=== PATIENT | male | born 1990 | race Caucasian/White ===

== ENCOUNTER 2016-12-09 17:29 | Emergency (ER) | payer OTHER ==
[2016-12-09 18:49] LABS: Hematocrit 38 % (42-52); Hemoglobin 12.8 g/dl (14.0-18.0); Mean Corpuscular HGB Conc 34 g/dl (31-36); Mean Corpuscular Hemoglobin 29 pg (27-31); Mean Corpuscular Volume 87 fL (80-94); Mean Platelet Volume 7 um3 (7.4-10.4); Red Blood Count 4.37 10^6/ul (4.0-5.4); Red Cell Distribution Width 16 % (10.5-15); White Blood Count 9.4 10^3/ul (3.5-10.8)
[2016-12-09 19:02] LABS: Albumin 3.7 g/dL (3.2-5.2); BUN/Creatinine Ratio 21.3 (8-20); C Reactive Protein 71.13 mg/L (< 5.00); Calcium 9.5 mg/dL (8.6-10.3); EGFR African American 273.5 (>60); EGFR Non-African American 212.7 (>60); Potassium 3.6 mmol/L (3.5-5.0); Total Bilirubin 0.6 mg/dL (0.2-1.0); Total Protein 6.7 g/dL (6.4-8.9)
[2016-12-09] MEDS ORDERED: Ondansetron INJ* 2 MG/ML VIAL IV ONE (19:26)
[2016-12-09] MEDS ORDERED: Vancomycin CAP* 125 MG CAP PO ONE ×2 (20:27→21:15)
[2016-12-09 21:28] LABS: Urine Bacteria 2+ (Absent); Urine Bilirubin Negative (Negative); Urine Glucose Negative (Negative); Urine Nitrite Positive (Negative)
[2016-12-09] MEDS ORDERED: Ciprofloxacin TAB* 500 MG PO ONE (21:46)
[2016-12-09 22:22] VITALS: BP 100/46
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
--- NOTE | 2016-12-10 16:02 | PN ---
Progress Note - Progress Note Date of Service: 12/09/16 Note: Started on vanco and cipro however psoke with pharmacist and due to needing prior auth for vanco was switched to flagyl. patient was recently diagnosed and treated for c diff. possibly just testing positive from last episode. stool culture results are positive for c diff and blood as already aware. already being treated. aware of worsening signs and symptoms. no further action or change needed at this time.
== END 2016-12-09 22:42 | disposition home or self-care (01) ==
LOC: ED 17:29
DX: N39.0 Urinary tract infection, site not specified (principal); A04.7 Enterocolitis due to Clostridium difficile; R11.2 Nausea with vomiting, unspecified; R50.9 Fever, unspecified
CPT/HCPCS: 36415; 80053; 81003; 81015; 82272; 83605; 83630; 85025; 85610; 86140; 87040; 87045; 87046; 87077; 87086; 87186; 87493; 87899; 96374; 99282; A9270-GY; J2405

== ENCOUNTER 2018-04-08 16:26 | Emergency (ER) | payer OTHER ==
[2018-04-08] MEDS ORDERED: oxyCODONE TAB* 5 MG TAB PO ONE (17:22)
[2018-04-08] MEDS ORDERED: Ibuprofen TAB* 400 MG PO ONE (17:22)
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
[2018-04-08 18:49] VITALS: BP 141/65
== END 2018-04-08 18:47 | disposition home or self-care (01) ==
LOC: ED 16:26
DX: M54.9 Dorsalgia, unspecified (principal); Z76.0 Encounter for issue of repeat prescription; G47.9 Sleep disorder, unspecified; G82.20 Paraplegia, unspecified; Z88.4 Allergy status to anesthetic agent; F17.210 Nicotine dependence, cigarettes, uncomplicated
CPT/HCPCS: 72070; 72110; 99282; A9270-GY

== ENCOUNTER 2020-04-04 18:44 | Inpatient (IN) ==
[2020-04-04 21:19] LABS: ABS Eosinophils 0.1 10^3/ul (0-0.6); ABS Lymphocytes 1.8 10^3/ul (1.0-4.8); ABS Monocytes 1.1 10^3/ul (0-0.8); ABS Neutrophils 7.3 10^3/ul (1.5-7.7); Eosinophil % 1.3 %; Hematocrit 47 % (42-52); Hemoglobin 16.2 g/dL (14.0-18.0); Mean Corpuscular HGB Conc 35 g/dL (31-36); Mean Corpuscular Hemoglobin 31 pg (27-31); Mean Corpuscular Volume 88 fL (80-94); Mean Platelet Volume 7.1 fL (7.4-10.4); Platelet Count 390 10^3/uL (150-450); Red Blood Count 5.29 10^6 /uL (4.18-5.48); Red Cell Distribution Width 14 % (10-15); White Blood Count 10.3 10^3/uL (3.5-10.8)
[2020-04-04 21:37] LABS: ALT 23 U/L (7-52); AST 24 U/L (13-39); Albumin 4.6 g/dL (3.2-5.2); Albumin/Globulin Ratio 1.4 (1-3); Alkaline Phosphatase 77 U/L (34-104); Anion Gap 8 mmol/L (2-11); BUN/Creatinine Ratio 32.7 (8-20); Blood Urea Nitrogen 18 mg/dL (6-24); CO2 Carbon Dioxide 27 mmol/L (22-32); Calcium 10.2 mg/dL (8.6-10.3); Chloride 103 mmol/L (101-111); EGFR African American 210.2 (>60); EGFR Non-African American 173.7 (>60); Globulin 3.4 g/dL (2-4); Glucose 96 mg/dL (70-100); Sodium 138 mmol/L (135-145)
[2020-04-04 21:45] LABS: Urine Appearance Cloudy; Urine Bilirubin Negative (Negative); Urine Blood 1+ (Negative); Urine Color Yellow; Urine Glucose Negative (Negative); Urine Ketones Negative (Negative); Urine Nitrite Negative (Negative); Urine Protein Negative (Negative); Urine Specific Gravity 1.011 (1.010-1.030); Urine Urobilinogen Negative (Negative)
[2020-04-04 21:50] LABS: Acetaminophen < 15 mcg/mL; Alcohol, S < 10 mg/dL (<10); Salicylate < 2.50 mg/dL (<30)
[2020-04-04 21:52] LABS: Urine Bacteria 2+ (Absent); Urine Red Blood Cell 2+(6-10/hpf) (Absent); Urine Squamous Epithelial Cell Present (Absent); Urine White Blood Cell 3+(>20/hpf) (Absent)
[2020-04-04] MEDS ORDERED: Cefepime 2 GM in Dextrose 2 GM/50 ML BAG IV ONE (22:24)
[2020-04-05 00:44] LABS: Urine Benzodiazepine Screen None Detected (None Detect); Urine Cannabinoids Screen None Detected (None Detect); Urine Opiates Screen Presumptive Positive (None Detect)
[2020-04-05] MEDS ORDERED: Albuterol 2.5mg/3 ml (0.083%) NEB.SOLN INH PRN (01:19)
[2020-04-05] MEDS: Morphine ER 30 mg TAB ** extended release PO SCH ×3 (08:39→19:59)
[2020-04-05] MEDS ORDERED: Ondansetron 4 mg VIAL 2 MG/ML 2 ml VIAL IV PRN (09:47)
[2020-04-05] MEDS ORDERED: Lorazepam PYXIS KEY PRN (09:52)
[2020-04-05] MEDS ORDERED: LORazepam 2 mg VIAL 1 ml IV PUSH PRN (09:52)
[2020-04-05] MEDS: Cefepime 2 GM in Dextrose 2 GM/50 ML BAG IV SCH ×2 (11:53→23:11)
[2020-04-05] MEDS ORDERED: Nicotine Lozenge mini 2 MG LOZNG.MINI MT PRN (15:51)
[2020-04-05] MEDS: Nicotine PATCH 14 MG/24 HR PATCH TRANSDERM SCH (16:24)
[2020-04-06] MEDS: Morphine ER 30 mg TAB ** extended release PO SCH ×2 (09:17→13:04)
[2020-04-06] MEDS: Nicotine PATCH 14 MG/24 HR PATCH TRANSDERM SCH (09:35)
[2020-04-06] MEDS: Cefepime 2 GM in Dextrose 2 GM/50 ML BAG IV SCH (12:00)
[2020-04-06] MEDS ORDERED: Nicotine GUM 4MG FRUIT FLAVOR PO PRN (14:34)
[2020-04-06 15:34] VITALS: BP 94/45
[2020-04-06] MEDS ORDERED: Cefepime 2 GM in NS 0.9% 50 ML 50 ML IVPB SCH (23:00)
== END 2020-04-06 16:46 | disposition home or self-care (01) | DRG 896 ==
LOC: ED 18:44 → MED 04-05 01:13
PROVIDERS: ADMIT Student in an Organized Health Care Education/Training Program; ATTEND Internal Medicine

== ENCOUNTER 2020-06-25 17:33 | Inpatient (IN) ==
[2020-06-25 19:07] LABS: ABS Lymphocytes 1.4 10^3/ul (1.0-4.8); ABS Monocytes 1.5 10^3/ul (0-0.8); Eosinophil % 0.4 %; Hematocrit 36 % (42-52); Hemoglobin 12.5 g/dL (14.0-18.0); Lymphocyte % 11.4 %; Mean Corpuscular HGB Conc 35 g/dL (31-36); Mean Corpuscular Hemoglobin 30 pg (27-31); Mean Corpuscular Volume 85 fL (80-94); Mean Platelet Volume 7.1 fL (7.4-10.4); Platelet Count 474 10^3/uL (150-450); Red Blood Count 4.19 10^6 /uL (4.18-5.48); Red Cell Distribution Width 15 % (10-15); White Blood Count 11.9 10^3/uL (3.5-10.8)
[2020-06-25] MEDS ORDERED: Vancomycin 1,250 MG in NS 0.9% 250 ml 250 ML IVPB ONE (19:12)
[2020-06-25 19:20] LABS: Albumin 3.6 g/dL (3.2-5.2); Albumin/Globulin Ratio 0.9 (1-3); BUN/Creatinine Ratio 28.9 (8-20); Calcium 9.3 mg/dL (8.6-10.3); Globulin 3.8 g/dL (2-4); Potassium 3.7 mmol/L (3.5-5.0); Total Bilirubin 0.7 mg/dL (0.2-1.0); Total Protein 7.4 g/dL (6.4-8.9)
[2020-06-25] MEDS ORDERED: NS 0.9% 250 ml 250 ML ONE (20:30)
[2020-06-25 22:07] LABS: C Reactive Protein 159.21 mg/L (<8.01)
[2020-06-25] MEDS ORDERED: Albuterol 2.5mg/3 ml (0.083%) NEB.SOLN INH PRN (22:42)
[2020-06-25] MEDS ORDERED: Vancomycin per Pharmacy 1 EA NOTE FOLLOW UP SCH (23:00)
[2020-06-25] MEDS ORDERED: Piperacillin/Tazobac ADVAN 3.375 GM in NS 0.9% 100 ml BAG 100 ML IV ONE (23:26)
[2020-06-25] MEDS ORDERED: Zosyn per Pharmacy NOTE FOLLOW UP SCH (23:45)
[2020-06-26] MEDS ORDERED: Nicotine Lozenge mini 4 MG LOZNG.MINI MT PRN (01:55)
[2020-06-26 04:49] LABS: Urine Appearance Cloudy; Urine Bilirubin Negative (Negative); Urine Blood Negative (Negative); Urine Color Amber; Urine Glucose Negative (Negative); Urine Ketones 1+ (Negative); Urine Nitrite Negative (Negative); Urine Protein 1+(30 mg/dL) (Negative); Urine Specific Gravity 1.027 (1.010-1.030); Urine Urobilinogen Negative (Negative)
[2020-06-26] MEDS ORDERED: Vancomycin 1,250 MG IV x ONCE IVPB ONE (05:03)
[2020-06-26 05:09] LABS: Urine Benzodiazepine Screen Presumptive Positive (None Detect); Urine Cannabinoids Screen Presumptive Positive (None Detect); Urine Opiates Screen Presumptive Positive (None Detect)
[2020-06-26 05:10] LABS: Urine Bacteria Absent (Absent); Urine Red Blood Cell Trace(0-2/hpf) (Absent); Urine Squamous Epithelial Cell Present (Absent); Urine White Blood Cell 2+(11-20/hpf) (Absent)
[2020-06-26] MEDS ORDERED: ZOSYN 3.375 GM Q6H - Intermittant 30 min Infusion IV ONE (06:00)
[2020-06-26 06:49] LABS: ABS Basophils 0.1 10^3/ul (0-0.2); ABS Eosinophils 0.2 10^3/ul (0-0.6); Eosinophil % 2.5 %; Hematocrit 33 % (42-52); Hemoglobin 11.4 g/dL (14.0-18.0); Lymphocyte % 27.2 %; Mean Corpuscular HGB Conc 34 g/dL (31-36); Mean Corpuscular Hemoglobin 29 pg (27-31); Mean Corpuscular Volume 86 fL (80-94); Mean Platelet Volume 6.9 fL (7.4-10.4); Platelet Count 485 10^3/uL (150-450); Red Blood Count 3.89 10^6 /uL (4.18-5.48); Red Cell Distribution Width 15 % (10-15); White Blood Count 7.3 10^3/uL (3.5-10.8)
[2020-06-26 07:07] LABS: Calcium 8.5 mg/dL (8.6-10.3); EGFR African American 186.6 (>60); EGFR Non-African American 154.2 (>60); Potassium 3.3 mmol/L (3.5-5.0)
[2020-06-26] MEDS ORDERED: Potassium Chlor 20 meq TAB.ER PO ONE ×2 (08:10→21:00)
[2020-06-26] MEDS: Heparin 5000 UNITS/ML 1 mL VIAL SUBCUT SCH ×3 (08:26→22:33)
[2020-06-26] MEDS ORDERED: Vancomycin 1000 MG in NS 0.9% 250 ML IVPB SCH (09:00)
[2020-06-26] MEDS: Morphine ER 30 mg TAB ** extended release PO SCH ×3 (09:35→19:34)
[2020-06-26] MEDS: Collagenase 250 units/gm OINT 1 tube TOPICAL SCH (10:01)
[2020-06-26 11:51] LABS: HIV 4th Generation Nonreactive (Nonreactive)
[2020-06-26] MEDS ORDERED: ZOSYN 3.375 GM Q8H per EXTENDED INFUSION IV SCH ×2 (12:00→14:00)
[2020-06-26 12:45] LABS: Hepatitis C Antibody Negative (Negative)
[2020-06-26] MEDS: Cefepime 2 GM in Dextrose 2 GM/50 ML BAG IV SCH ×2 (14:02→22:29)
[2020-06-26] MEDS: Vancomycin 1000 MG in NS 0.9% 250 ML IVPB SCH (19:35)
[2020-06-27] MEDS: Vancomycin 1000 MG in NS 0.9% 250 ML IVPB SCH ×4 (03:13→22:59)
[2020-06-27] MEDS: Cefepime 2 GM in Dextrose 2 GM/50 ML BAG IV SCH ×2 (05:33→17:04)
[2020-06-27] MEDS: Heparin 5000 UNITS/ML 1 mL VIAL SUBCUT SCH ×2 (05:39→14:54)
[2020-06-27] MEDS ORDERED: Vancomycin Trough Check NOTE FOLLOW UP ONE (06:00)
[2020-06-27 07:56] LABS: Hematocrit 32 % (42-52); Hemoglobin 10.7 g/dL (14.0-18.0); Mean Corpuscular HGB Conc 34 g/dL (31-36); Mean Corpuscular Hemoglobin 29 pg (27-31); Mean Corpuscular Volume 88 fL (80-94); Mean Platelet Volume 6.7 fL (7.4-10.4); Platelet Count 434 10^3/uL (150-450); Red Blood Count 3.65 10^6 /uL (4.18-5.48); Red Cell Distribution Width 15 % (10-15)
[2020-06-27 08:11] LABS: BUN/Creatinine Ratio 13.5 (8-20); Calcium 8.5 mg/dL (8.6-10.3); EGFR African American 224.3 (>60); EGFR Non-African American 185.4 (>60)
[2020-06-27] MEDS: Morphine ER 30 mg TAB ** extended release PO SCH ×3 (08:28→22:06)
[2020-06-27 08:44] LABS: Vancomycin Trough 13.8 mcg/mL
[2020-06-27] MEDS: Collagenase 250 units/gm OINT 1 tube TOPICAL SCH (11:22)
[2020-06-27] MEDS: Enoxaparin 40 MG/0.4 ML SYR SUBCUT SCH (17:17)
[2020-06-28] MEDS: Cefepime 2 GM in Dextrose 2 GM/50 ML BAG IV SCH ×4 (00:47→22:50)
[2020-06-28 05:24] LABS: Hematocrit 30 % (42-52); Mean Corpuscular HGB Conc 33 g/dL (31-36); Mean Corpuscular Hemoglobin 29 pg (27-31); Mean Corpuscular Volume 87 fL (80-94); Mean Platelet Volume 6.8 fL (7.4-10.4); Platelet Count 393 10^3/uL (150-450); Red Blood Count 3.47 10^6 /uL (4.18-5.48); Red Cell Distribution Width 15 % (10-15); White Blood Count 5.8 10^3/uL (3.5-10.8)
[2020-06-28 05:41] LABS: BUN/Creatinine Ratio 13.5 (8-20); Calcium 8.4 mg/dL (8.6-10.3); EGFR African American 224.3 (>60); EGFR Non-African American 185.4 (>60); Magnesium 1.9 mg/dL (1.9-2.7); Potassium 4.4 mmol/L (3.5-5.0)
[2020-06-28] MEDS: Vancomycin 1000 MG in NS 0.9% 250 ML IVPB SCH ×3 (06:12→23:45)
[2020-06-28] MEDS: Morphine ER 30 mg TAB ** extended release PO SCH ×3 (08:15→20:43)
[2020-06-28] MEDS: Collagenase 250 units/gm OINT 1 tube TOPICAL SCH (08:19)
[2020-06-28 12:28] LABS: C Reactive Protein 28.97 mg/L (<8.01)
[2020-06-28] MEDS ORDERED: Vancomycin Trough Check NOTE FOLLOW UP ONE (13:30)
[2020-06-28] MEDS: Enoxaparin 40 MG/0.4 ML SYR SUBCUT SCH (17:50)
[2020-06-28] MEDS ORDERED: Lorazepam PYXIS KEY PRN (21:55)
[2020-06-28] MEDS ORDERED: LORazepam 2 mg VIAL 1 ml IV PUSH ONE (21:56)
[2020-06-29] MEDS: Cefepime 2 GM in Dextrose 2 GM/50 ML BAG IV SCH ×3 (05:38→21:05)
[2020-06-29 06:08] LABS: Hematocrit 30 % (42-52); Hemoglobin 9.7 g/dL (14.0-18.0); Mean Corpuscular HGB Conc 33 g/dL (31-36); Mean Corpuscular Hemoglobin 29 pg (27-31); Mean Corpuscular Volume 88 fL (80-94); Mean Platelet Volume 6.6 fL (7.4-10.4); Platelet Count 379 10^3/uL (150-450); Red Blood Count 3.35 10^6 /uL (4.18-5.48); Red Cell Distribution Width 15 % (10-15); White Blood Count 5.9 10^3/uL (3.5-10.8)
[2020-06-29] MEDS: Vancomycin 1000 MG in NS 0.9% 250 ML IVPB SCH ×3 (06:29→22:04)
[2020-06-29] MEDS: Morphine ER 30 mg TAB ** extended release PO SCH ×3 (08:23→21:04)
[2020-06-29] MEDS: Collagenase 250 units/gm OINT 1 tube TOPICAL SCH ×2 (12:48→15:04)
[2020-06-29] MEDS: Enoxaparin 40 MG/0.4 ML SYR SUBCUT SCH (16:31)
[2020-06-30] MEDS: Cefepime 2 GM in Dextrose 2 GM/50 ML BAG IV SCH ×3 (05:30→23:32)
[2020-06-30] MEDS: Vancomycin 1000 MG in NS 0.9% 250 ML IVPB SCH ×3 (06:16→21:33)
[2020-06-30] MEDS: Collagenase 250 units/gm OINT 1 tube TOPICAL SCH (08:40)
[2020-06-30] MEDS: Morphine ER 30 mg TAB ** extended release PO SCH ×3 (08:43→19:57)
[2020-06-30 08:50] LABS: Hematocrit 32 % (42-52); Hemoglobin 10.6 g/dL (14.0-18.0); Mean Corpuscular HGB Conc 34 g/dL (31-36); Mean Corpuscular Hemoglobin 29 pg (27-31); Mean Corpuscular Volume 88 fL (80-94); Mean Platelet Volume 6.6 fL (7.4-10.4); Platelet Count 402 10^3/uL (150-450); Red Cell Distribution Width 15 % (10-15); White Blood Count 7.2 10^3/uL (3.5-10.8)
[2020-06-30 08:58] LABS: BUN/Creatinine Ratio 21.8 (8-20); C Reactive Protein 10.28 mg/L (<8.01); Calcium 8.6 mg/dL (8.6-10.3); EGFR African American 210.2 (>60); EGFR Non-African American 173.7 (>60); Potassium 4.2 mmol/L (3.5-5.0)
[2020-06-30 09:34] LABS: ABS Eosinophils 0.4 10^3/ul (0-0.6); ABS Lymphocytes 1.8 10^3/ul (1.0-4.8); ABS Neutrophils 3.9 10^3/ul (1.5-7.7); Eosinophil % 6.1 %; Lymphocyte % 25.6 %; Nucleated Red Blood Cells % 0.1
[2020-06-30] MEDS ORDERED: Vancomycin Trough Check NOTE FOLLOW UP ONE (13:30)
[2020-06-30] MEDS: Enoxaparin 40 MG/0.4 ML SYR SUBCUT SCH ×2 (15:07→15:10)
[2020-07-01] MEDS: Cefepime 2 GM in Dextrose 2 GM/50 ML BAG IV SCH ×2 (05:45→14:52)
[2020-07-01] MEDS: Vancomycin 1000 MG in NS 0.9% 250 ML IVPB SCH ×2 (07:01→15:06)
[2020-07-01] MEDS: Morphine ER 30 mg TAB ** extended release PO SCH ×2 (07:48→14:54)
[2020-07-01] MEDS: Collagenase 250 units/gm OINT 1 tube TOPICAL SCH (10:09)
[2020-07-01] MEDS ORDERED: Vancomycin Trough Check NOTE FOLLOW UP ONE (13:30)
[2020-07-01 14:55] VITALS: BP 100/46
[2020-07-01] MEDS: Enoxaparin 40 MG/0.4 ML SYR SUBCUT SCH (15:05)
== END 2020-07-01 18:02 | disposition home or self-care (01) | DRG 602 ==
LOC: EDHOLD 17:33 → ED 17:33 → MEDTELE 06-26 11:21
PROVIDERS: ADMIT Internal Medicine; ATTEND Internal Medicine

== ENCOUNTER 2020-07-31 00:36 | Inpatient (IN) ==
[2020-07-31 01:14] LABS: Hematocrit 34 % (42-52); Hemoglobin 11.8 g/dL (14.0-18.0); Mean Corpuscular HGB Conc 35 g/dL (31-36); Mean Corpuscular Hemoglobin 30 pg (27-31); Mean Corpuscular Volume 85 fL (80-94); Platelet Count 510 10^3/uL (150-450); Red Blood Count 3.99 10^6 /uL (4.18-5.48); Red Cell Distribution Width 16 % (10-15); White Blood Count 12.4 10^3/uL (3.5-10.8)
[2020-07-31 01:26] LABS: Albumin 3.5 g/dL (3.2-5.2); Albumin/Globulin Ratio 0.9 (1-3); BUN/Creatinine Ratio 22.5 (8-20); C Reactive Protein 124.57 mg/L (<8.01); EGFR African American 301.6 (>60); EGFR Non-African American 249.3 (>60); Total Bilirubin 0.5 mg/dL (0.2-1.0); Total Protein 7.5 g/dL (6.4-8.9)
[2020-07-31 01:27] LABS: Troponin I 0.01 ng/mL (<0.03)
[2020-07-31 01:34] LABS: Activated Partial Thrombo Time 29.3 seconds (26.0-38.0); INR 1.37 (0.82-1.09)
[2020-07-31 01:43] LABS: ABS Basophils 0.1 10^3/ul (0-0.2); ABS Eosinophils 0.1 10^3/ul (0-0.6); ABS Lymphocytes 1.6 10^3/ul (1.0-4.8); ABS Neutrophils 8.7 10^3/ul (1.5-7.7); Eosinophil % 0.7 %; Lymphocyte % 13.3 %
[2020-07-31] MEDS ORDERED: NS 0.9% 1000 ml BAG 1,000 ML IV ONE (02:50)
[2020-07-31] MEDS ORDERED: Albuterol 2.5mg/3 ml (0.083%) NEB.SOLN INH PRN (04:49)
[2020-07-31] MEDS ORDERED: Iohexol 300 (CONTRAST) 10 ML SDV IV ONE (05:05)
[2020-07-31] MEDS ORDERED: Linezolid 600 MG IVPREMIX(*) 600 MG/300 ML BAG IVPB ONE (05:26)
[2020-07-31] MEDS ORDERED: Potassium Chlor 20 meq TAB.ER PO ONE (06:56)
[2020-07-31 07:19] LABS: ABS Basophils 0.1 10^3/ul (0-0.2); ABS Eosinophils 0.3 10^3/ul (0-0.6); ABS Lymphocytes 1.7 10^3/ul (1.0-4.8); ABS Monocytes 1.4 10^3/ul (0-0.8); ABS Neutrophils 6.8 10^3/ul (1.5-7.7); Eosinophil % 2.6 %; Hematocrit 34 % (42-52); Hemoglobin 11.4 g/dL (14.0-18.0); Lymphocyte % 16.7 %; Mean Corpuscular HGB Conc 34 g/dL (31-36); Mean Corpuscular Hemoglobin 29 pg (27-31); Mean Corpuscular Volume 85 fL (80-94); Mean Platelet Volume 6.9 fL (7.4-10.4); Platelet Count 473 10^3/uL (150-450); Red Blood Count 3.93 10^6 /uL (4.18-5.48); Red Cell Distribution Width 16 % (10-15); White Blood Count 10.2 10^3/uL (3.5-10.8)
[2020-07-31 07:35] LABS: BUN/Creatinine Ratio 23.1 (8-20); Calcium 8.5 mg/dL (8.6-10.3); EGFR African American 310.6 (>60); EGFR Non-African American 256.7 (>60); Potassium 3.1 mmol/L (3.5-5.0)
[2020-07-31] MEDS ORDERED: Magnesium Hydroxide LIQ 30 ML UDC PO PRN (07:40)
[2020-07-31 08:26] LABS: Magnesium 1.8 mg/dL (1.9-2.7)
[2020-07-31] MEDS: Senna TAB 8.6 mg TAB PO PRN (11:37)
[2020-07-31] MEDS: Enoxaparin 40 MG/0.4 ML SYR SUBCUT SCH (11:38)
[2020-07-31] MEDS: Morphine ER 30 mg TAB ** extended release PO SCH ×3 (11:38→23:48)
[2020-07-31 12:20] LABS: Urine Appearance Clear; Urine Bilirubin Negative (Negative); Urine Blood Negative (Negative); Urine Color Yellow; Urine Glucose Negative (Negative); Urine Ketones Negative (Negative); Urine Nitrite Negative (Negative); Urine Protein Negative (Negative); Urine Specific Gravity 1.057 (1.010-1.030); Urine Urobilinogen Negative (Negative)
[2020-07-31 13:06] LABS: Urine Benzodiazepine Screen None Detected (None Detect); Urine Cannabinoids Screen None Detected (None Detect); Urine Opiates Screen Presumptive Positive (None Detect)
[2020-07-31] MEDS ORDERED: Lorazepam PYXIS KEY PRN (15:41)
[2020-07-31] MEDS ORDERED: LORazepam 2 mg VIAL 1 ml IV PUSH PRN (19:30)
[2020-07-31] MEDS ORDERED: LORazepam 2 mg VIAL 1 ml IV PUSH ONE (19:30)
[2020-07-31] MEDS: Linezolid 600 MG IVPREMIX(*) 600 MG/300 ML BAG IVPB SCH (23:46)
[2020-08-01] MEDS ORDERED: Magnesium Sulfate 2 gm BAG 2 GM/50 ML BAG IVPB ONE (07:30)
[2020-08-01 08:12] LABS: ABS Eosinophils 0.4 10^3/ul (0-0.6); ABS Lymphocytes 2.2 10^3/ul (1.0-4.8); ABS Monocytes 0.8 10^3/ul (0-0.8); ABS Neutrophils 4.2 10^3/ul (1.5-7.7); Eosinophil % 5.7 %; Hematocrit 32 % (42-52); Hemoglobin 10.7 g/dL (14.0-18.0); Lymphocyte % 28.2 %; Mean Corpuscular HGB Conc 33 g/dL (31-36); Mean Corpuscular Hemoglobin 29 pg (27-31); Mean Corpuscular Volume 87 fL (80-94); Mean Platelet Volume 6.8 fL (7.4-10.4); Nucleated Red Blood Cells % 0.1; Platelet Count 440 10^3/uL (150-450); Red Blood Count 3.72 10^6 /uL (4.18-5.48); Red Cell Distribution Width 17 % (10-15); White Blood Count 7.7 10^3/uL (3.5-10.8)
[2020-08-01 08:31] LABS: BUN/Creatinine Ratio 21.1 (8-20); Calcium 8.8 mg/dL (8.6-10.3); EGFR Non-African American 264.5 (>60)
[2020-08-01] MEDS: Morphine ER 30 mg TAB ** extended release PO SCH ×3 (08:45→21:22)
[2020-08-01] MEDS: Potassium Chlor 20 meq TAB.ER PO SCH (08:46)
[2020-08-01 09:28] LABS: C Reactive Protein 77.37 mg/L (<8.01)
[2020-08-01] MEDS: Enoxaparin 40 MG/0.4 ML SYR SUBCUT SCH (10:33)
[2020-08-01] MEDS: Linezolid 600 MG IVPREMIX(*) 600 MG/300 ML BAG IVPB SCH ×2 (14:30→23:55)
[2020-08-02] MEDS: Morphine ER 30 mg TAB ** extended release PO SCH ×3 (09:22→20:51)
[2020-08-02] MEDS: Potassium Chlor 20 meq TAB.ER PO SCH (09:24)
[2020-08-02] MEDS: Enoxaparin 40 MG/0.4 ML SYR SUBCUT SCH (09:24)
[2020-08-02] MEDS: Linezolid 600 MG IVPREMIX(*) 600 MG/300 ML BAG IVPB SCH ×2 (12:34→23:59)
[2020-08-03] MEDS: Enoxaparin 40 MG/0.4 ML SYR SUBCUT SCH (10:00)
[2020-08-03] MEDS: Morphine ER 30 mg TAB ** extended release PO SCH ×3 (10:01→21:38)
[2020-08-03] MEDS: Potassium Chlor 20 meq TAB.ER PO SCH (10:01)
[2020-08-03] MEDS: Linezolid 600 MG IVPREMIX(*) 600 MG/300 ML BAG IVPB SCH (12:11)
[2020-08-04] MEDS: Linezolid 600 MG IVPREMIX(*) 600 MG/300 ML BAG IVPB SCH ×3 (00:06→23:09)
[2020-08-04 06:52] LABS: Hematocrit 33 % (42-52); Hemoglobin 10.6 g/dL (14.0-18.0); Mean Corpuscular HGB Conc 32 g/dL (31-36); Mean Corpuscular Hemoglobin 28 pg (27-31); Mean Corpuscular Volume 88 fL (80-94); Mean Platelet Volume 6.8 fL (7.4-10.4); Platelet Count 415 10^3/uL (150-450); Red Blood Count 3.74 10^6 /uL (4.18-5.48); Red Cell Distribution Width 16 % (10-15)
[2020-08-04 07:17] LABS: BUN/Creatinine Ratio 14.9 (8-20); C Reactive Protein 12.65 mg/L (<8.01); Calcium 8.8 mg/dL (8.6-10.3); EGFR African American 250.4 (>60); Magnesium 1.8 mg/dL (1.9-2.7); Potassium 3.9 mmol/L (3.5-5.0)
[2020-08-04] MEDS: Enoxaparin 40 MG/0.4 ML SYR SUBCUT SCH (10:13)
[2020-08-04] MEDS: Potassium Chlor 20 meq TAB.ER PO SCH ×2 (10:14→10:22)
[2020-08-04] MEDS: Morphine ER 30 mg TAB ** extended release PO SCH ×3 (10:14→19:39)
[2020-08-04] MEDS: Senna TAB 8.6 mg TAB PO PRN (12:36)
[2020-08-05] MEDS ORDERED: Buffered Lidocaine 1% SYRIN 1 ml INTRADERM ONE (06:00)
[2020-08-05] MEDS ORDERED: Lactated Ringers 1000 ml BAG 1,000 ML IV SCH (06:00)
[2020-08-05] MEDS ORDERED: Ondansetron 4 mg VIAL 2 MG/ML 2 ml VIAL IV PRN (08:06)
[2020-08-05] MEDS ORDERED: diPHENhydraMINE IV 50 MG/ML 1 ml VIAL (BENADRYL) IV PRN (08:06)
[2020-08-05] MEDS ORDERED: Naloxone 0.4 mg VIAL 0.4 mg/ml 1 ml VIAL IV PRN (08:06)
[2020-08-05] MEDS: Enoxaparin 40 MG/0.4 ML SYR SUBCUT SCH (09:55)
[2020-08-05] MEDS: Morphine ER 30 mg TAB ** extended release PO SCH ×3 (09:55→20:36)
[2020-08-05] MEDS: Potassium Chlor 20 meq TAB.ER PO SCH (09:55)
[2020-08-05] MEDS: Linezolid 600 MG IVPREMIX(*) 600 MG/300 ML BAG IVPB SCH (12:53)
[2020-08-06] MEDS: Linezolid 600 MG IVPREMIX(*) 600 MG/300 ML BAG IVPB SCH ×3 (00:38→23:41)
[2020-08-06] MEDS: Morphine ER 30 mg TAB ** extended release PO SCH ×3 (10:39→21:29)
[2020-08-06] MEDS: Potassium Chlor 20 meq TAB.ER PO SCH (10:39)
[2020-08-06] MEDS: Enoxaparin 40 MG/0.4 ML SYR SUBCUT SCH (10:42)
[2020-08-07] MEDS: Linezolid 600 MG IVPREMIX(*) 600 MG/300 ML BAG IVPB SCH ×2 (00:15→14:23)
[2020-08-07] MEDS: Potassium Chlor 20 meq TAB.ER PO SCH (10:11)
[2020-08-07] MEDS: Enoxaparin 40 MG/0.4 ML SYR SUBCUT SCH (10:12)
[2020-08-07 19:28] VITALS: BP 129/78
== END 2020-08-07 18:00 | disposition home health service (06) | DRG 604 ==
LOC: ED 00:36 → MED 07:24
PROVIDERS: ADMIT Internal Medicine; ATTEND Internal Medicine

== ENCOUNTER 2020-09-17 22:07 | Inpatient (IN) ==
[2020-09-17] MEDS ORDERED: NS 0.9% 1000 ml BAG 1,000 ML IV ONE (22:14)
[2020-09-17 23:04] LABS: Hematocrit 36 % (42-52); Mean Corpuscular HGB Conc 33 g/dL (31-36); Mean Corpuscular Hemoglobin 27 pg (27-31); Mean Corpuscular Volume 83 fL (80-94); Mean Platelet Volume 6.6 fL (7.4-10.4); Platelet Count 531 10^3/uL (150-450); Red Cell Distribution Width 17 % (10-15); White Blood Count 17.5 10^3/uL (3.5-10.8)
[2020-09-17 23:14] LABS: Albumin 3.4 g/dL (3.2-5.2); Albumin/Globulin Ratio 0.9 (1-3); C Reactive Protein 215.02 mg/L (<8.01); EGFR African American 301.6 (>60); EGFR Non-African American 249.3 (>60); Potassium 2.9 mmol/L (3.5-5.0); Total Bilirubin 0.6 mg/dL (0.2-1.0); Total Protein 7.4 g/dL (6.4-8.9)
[2020-09-17 23:40] LABS: ABS Lymphocytes 1.2 10^3/ul (1.0-4.8); ABS Neutrophils 14.3 10^3/ul (1.5-7.7); Eosinophil % 0.1 %
[2020-09-17] MEDS ORDERED: Potassium Chlor 20 meq TAB.ER PO ONE (23:41)
[2020-09-18] MEDS ORDERED: Albuterol 2.5mg/3 ml (0.083%) NEB.SOLN INH PRN (00:31)
[2020-09-18 02:51] LABS: Magnesium 2.2 mg/dL (1.9-2.7)
[2020-09-18] MEDS: Linezolid 600 MG IVPREMIX(*) 600 MG/300 ML BAG IVPB SCH ×2 (03:41→16:24)
[2020-09-18] MEDS: Nicotine PATCH 21 MG/24 HR PATCH TRANSDERM SCH ×3 (04:55→09:14)
[2020-09-18] MEDS: Enoxaparin 40 MG/0.4 ML SYR SUBCUT SCH (05:48)
[2020-09-18 05:59] LABS: Calcium 8.3 mg/dL (8.6-10.3); EGFR African American 256.7 (>60); EGFR Non-African American 212.2 (>60)
[2020-09-18] MEDS: NS 0.9% 1000 ml BAG 1,000 ML IV SCH (07:29)
[2020-09-18] MEDS ORDERED: Potassium Chlor 20 meq TAB.ER PO ONE (07:35)
[2020-09-18] MEDS ORDERED: Morphine ER 30 mg TAB ** extended release PO SCH (09:00)
[2020-09-18] MEDS: Morphine ER 30 mg TAB ** extended release PO SCH ×3 (09:17→21:45)
[2020-09-18] MEDS: Fluticasone NASAL SPRAY 50MCG 16 gm SPRAY BTL INTRANASAL SCH ×2 (09:22→21:49)
[2020-09-18] MEDS ORDERED: Buffered Lidocaine 1% SYRIN 1 ml INTRADERM ONE ×2 (11:44→15:45)
[2020-09-18 18:47] LABS: Urine Appearance Clear; Urine Bilirubin Negative (Negative); Urine Blood Negative (Negative); Urine Color Amber; Urine Glucose Negative (Negative); Urine Ketones Negative (Negative); Urine Nitrite Negative (Negative); Urine Protein 1+(30 mg/dL) (Negative); Urine Specific Gravity 1.027 (1.002-1.030); Urine Urobilinogen Positive (Negative)
[2020-09-18 18:52] LABS: Urine Bacteria Absent (Absent); Urine Red Blood Cell 2+(6-10/hpf) (Absent); Urine Squamous Epithelial Cell Present (Absent); Urine White Blood Cell 2+(11-20/hpf) (Absent)
[2020-09-18 19:14] LABS: Urine Benzodiazepine Screen None Detected (None Detect); Urine Cannabinoids Screen Presumptive Positive (None Detect); Urine Opiates Screen Presumptive Positive (None Detect)
[2020-09-19] MEDS: NS 0.9% 1000 ml BAG 1,000 ML IV SCH ×2 (03:09→12:44)
[2020-09-19] MEDS: Linezolid 600 MG IVPREMIX(*) 600 MG/300 ML BAG IVPB SCH ×2 (03:09→16:18)
[2020-09-19] MEDS ORDERED: Naloxone 0.4 mg VIAL 0.4 mg/ml 1 ml VIAL ONE ×2 (05:04→06:00)
[2020-09-19] MEDS: Naloxone 0.4 mg VIAL 0.4 mg/ml 1 ml VIAL IV PUSH ONE ×2 (05:10→06:08)
[2020-09-19 05:26] LABS: Hematocrit 30 % (42-52); Hemoglobin 9.6 g/dL (14.0-18.0); Mean Corpuscular HGB Conc 32 g/dL (31-36); Mean Corpuscular Hemoglobin 27 pg (27-31); Mean Corpuscular Volume 84 fL (80-94); Mean Platelet Volume 6.5 fL (7.4-10.4); Platelet Count 416 10^3/uL (150-450); Red Blood Count 3.52 10^6 /uL (4.18-5.48); Red Cell Distribution Width 17 % (10-15)
[2020-09-19 05:45] LABS: Albumin 2.5 g/dL (3.2-5.2); Albumin/Globulin Ratio 0.8 (1-3); Calcium 7.6 mg/dL (8.6-10.3); EGFR African American 404.8 (>60); EGFR Non-African American 334.6 (>60); Magnesium 1.6 mg/dL (1.9-2.7); Potassium 3.5 mmol/L (3.5-5.0); Total Bilirubin 0.2 mg/dL (0.2-1.0); Total Protein 5.5 g/dL (6.4-8.9)
[2020-09-19 05:46] LABS: Troponin I 0.01 ng/mL (<0.03)
[2020-09-19] MEDS ORDERED: Naloxone 0.4 mg VIAL 0.4 mg/ml 1 ml VIAL IV PUSH ONE (05:58)
[2020-09-19] MEDS ORDERED: Magnesium Sulfate IV 3 GM in NS 0.9% 100 ml BAG 100 ML IVPB ONE (06:00)
[2020-09-19] MEDS ORDERED: Naloxone 0.4 mg VIAL 0.4 mg/ml 1 ml VIAL IV PUSH PRN (07:01)
[2020-09-19] MEDS ORDERED: LORazepam 2 mg VIAL 1 ml ONE (07:34)
[2020-09-19] MEDS ORDERED: LORazepam 2 mg VIAL 1 ml IV PUSH ONE (07:35)
[2020-09-19] MEDS: Enoxaparin 40 MG/0.4 ML SYR SUBCUT SCH (08:12)
[2020-09-19] MEDS: Fluticasone NASAL SPRAY 50MCG 16 gm SPRAY BTL INTRANASAL SCH ×2 (11:40→21:14)
[2020-09-19] MEDS: Nicotine PATCH 21 MG/24 HR PATCH TRANSDERM SCH (12:44)
[2020-09-19 12:58] LABS: Corrected Retic Count 0.4 % (0.5-1.5); Hematocrit for Retic CNT 31 % (42-52); Immature Retic Fraction 0.34; RBC Retic Count 3.67 10^6/uL (4.18-5.48)
[2020-09-19 13:12] LABS: Fibrinogen 420.9 mg/dL (110.8-404.3); INR 1.15 (0.82-1.09)
[2020-09-19 13:22] LABS: LDH 198 U/L (140-271); Total Iron Binding Capacity 140 mcg/dL (250-450); Transferrin 100 mg/dL (203-362)
[2020-09-19 13:23] LABS: % Iron Saturation 14 % (15-55); Iron < 20 ug/dL (50-212); Unsaturated Iron Binding < 125 ug/dL
[2020-09-19 13:45] LABS: Ferritin 627.7 ng/mL (24-336)
[2020-09-19 13:48] LABS: Folate 6.26 ng/mL (5.90-24.80)
[2020-09-19 13:49] LABS: Vitamin B12 362 pg/mL (180-914)
[2020-09-19] MEDS: cefTRIAXone 1 gm/50 mL NS BAG 1 GM/50 ML BAG IVPB SCH (22:45)
[2020-09-20] MEDS: Linezolid 600 MG IVPREMIX(*) 600 MG/300 ML BAG IVPB SCH ×2 (02:29→15:46)
[2020-09-20 04:47] LABS: ABS Eosinophils 0.3 10^3/ul (0-0.6); ABS Lymphocytes 1.8 10^3/ul (1.0-4.8); ABS Monocytes 0.8 10^3/ul (0-0.8); ABS Neutrophils 3.6 10^3/ul (1.5-7.7); Eosinophil % 5.2 %; Hematocrit 31 % (42-52); Hemoglobin 10.4 g/dL (14.0-18.0); Lymphocyte % 27.9 %; Mean Corpuscular HGB Conc 33 g/dL (31-36); Mean Corpuscular Hemoglobin 28 pg (27-31); Mean Corpuscular Volume 84 fL (80-94); Mean Platelet Volume 6.5 fL (7.4-10.4); Platelet Count 515 10^3/uL (150-450); Red Blood Count 3.75 10^6 /uL (4.18-5.48); Red Cell Distribution Width 16 % (10-15); White Blood Count 6.6 10^3/uL (3.5-10.8)
[2020-09-20 04:59] LABS: Calcium 7.9 mg/dL (8.6-10.3); EGFR African American 363.9 (>60); EGFR Non-African American 300.7 (>60); Magnesium 1.9 mg/dL (1.9-2.7); Phosphorus 2.8 mg/dL (2.5-5.0); Potassium 3.9 mmol/L (3.5-5.0)
[2020-09-20] MEDS: Enoxaparin 40 MG/0.4 ML SYR SUBCUT SCH (05:37)
[2020-09-20] MEDS ORDERED: Magnesium Sulfate 2 gm BAG 2 GM/50 ML BAG IVPB ONE (07:25)
[2020-09-20] MEDS: cefTRIAXone 1 gm/50 mL NS BAG 1 GM/50 ML BAG IVPB SCH ×2 (08:10→21:08)
[2020-09-20] MEDS: Nicotine PATCH 21 MG/24 HR PATCH TRANSDERM SCH (08:10)
[2020-09-20] MEDS: Fluticasone NASAL SPRAY 50MCG 16 gm SPRAY BTL INTRANASAL SCH ×3 (08:20→21:39)
[2020-09-20] MEDS: oxyCODONE/Acetamin 5/325 mg TAB PO PRN ×2 (10:02→21:36)
[2020-09-21] MEDS: Linezolid 600 MG IVPREMIX(*) 600 MG/300 ML BAG IVPB SCH ×2 (03:42→15:13)
[2020-09-21] MEDS: Enoxaparin 40 MG/0.4 ML SYR SUBCUT SCH (05:46)
[2020-09-21] MEDS: Nicotine PATCH 21 MG/24 HR PATCH TRANSDERM SCH (09:38)
[2020-09-21] MEDS: cefTRIAXone 1 gm/50 mL NS BAG 1 GM/50 ML BAG IVPB SCH ×2 (09:39→21:19)
[2020-09-21] MEDS: Fluticasone NASAL SPRAY 50MCG 16 gm SPRAY BTL INTRANASAL SCH ×2 (09:40→21:21)
[2020-09-21] MEDS: Collagenase 250 units/gm OINT 1 tube TOPICAL SCH (18:37)
[2020-09-22] MEDS: Linezolid 600 MG IVPREMIX(*) 600 MG/300 ML BAG IVPB SCH ×2 (02:54→15:24)
[2020-09-22] MEDS: Enoxaparin 40 MG/0.4 ML SYR SUBCUT SCH (05:36)
[2020-09-22 05:37] LABS: C Reactive Protein 20.06 mg/L (<8.01); EGFR African American 301.6 (>60); EGFR Non-African American 249.3 (>60); Potassium 4.6 mmol/L (3.5-5.0)
[2020-09-22] MEDS: Nicotine PATCH 21 MG/24 HR PATCH TRANSDERM SCH (09:52)
[2020-09-22] MEDS: cefTRIAXone 1 gm/50 mL NS BAG 1 GM/50 ML BAG IVPB SCH ×2 (09:52→20:13)
[2020-09-22] MEDS: Collagenase 250 units/gm OINT 1 tube TOPICAL SCH (10:00)
[2020-09-22] MEDS: Fluticasone NASAL SPRAY 50MCG 16 gm SPRAY BTL INTRANASAL SCH ×2 (11:19→21:43)
[2020-09-22] MEDS ORDERED: Calcium Polycarbophil 625mg TB PO SCH (12:00)
[2020-09-22] MEDS ORDERED: Lorazepam PYXIS KEY PRN (15:14)
[2020-09-22] MEDS ORDERED: LORazepam 2 mg VIAL 1 ml IV PUSH ONE (15:14)
[2020-09-22] MEDS: oxyCODONE/Acetamin 5/325 mg TAB PO PRN (21:31)
[2020-09-23] MEDS: Linezolid 600 MG IVPREMIX(*) 600 MG/300 ML BAG IVPB SCH ×2 (02:35→16:46)
[2020-09-23] MEDS: Enoxaparin 40 MG/0.4 ML SYR SUBCUT SCH (05:10)
[2020-09-23] MEDS: Fluticasone NASAL SPRAY 50MCG 16 gm SPRAY BTL INTRANASAL SCH ×2 (10:00→20:14)
[2020-09-23] MEDS: Calcium Polycarbophil 625mg TB PO SCH (11:13)
[2020-09-23] MEDS: Nicotine PATCH 21 MG/24 HR PATCH TRANSDERM SCH (11:14)
[2020-09-23] MEDS: oxyCODONE/Acetamin 5/325 mg TAB PO PRN ×2 (11:16→19:37)
[2020-09-23] MEDS: Collagenase 250 units/gm OINT 1 tube TOPICAL SCH (11:30)
[2020-09-23] MEDS: cefTRIAXone 1 gm/50 mL NS BAG 1 GM/50 ML BAG IVPB SCH (11:30)
[2020-09-24] MEDS: Linezolid 600 MG IVPREMIX(*) 600 MG/300 ML BAG IVPB SCH ×2 (03:09→15:51)
[2020-09-24] MEDS: Enoxaparin 40 MG/0.4 ML SYR SUBCUT SCH (04:36)
[2020-09-24] MEDS: oxyCODONE/Acetamin 5/325 mg TAB PO PRN ×2 (09:24→15:49)
[2020-09-24] MEDS: Nicotine PATCH 21 MG/24 HR PATCH TRANSDERM SCH (09:25)
[2020-09-24] MEDS: Fluticasone NASAL SPRAY 50MCG 16 gm SPRAY BTL INTRANASAL SCH ×2 (09:26→20:47)
[2020-09-24] MEDS: Collagenase 250 units/gm OINT 1 tube TOPICAL SCH (09:26)
[2020-09-24] MEDS: Calcium Polycarbophil 625mg TB PO SCH (10:29)
[2020-09-24] MEDS ORDERED: LORazepam 2 mg VIAL 1 ml IV PUSH ONE (16:22)
[2020-09-24] MEDS: Morphine 2 MG/ML SYRINGE IV PRN (19:51)
[2020-09-25] MEDS: Linezolid 600 MG IVPREMIX(*) 600 MG/300 ML BAG IVPB SCH ×2 (02:19→15:50)
[2020-09-25] MEDS: oxyCODONE/Acetamin 5/325 mg TAB PO PRN ×4 (02:26→23:07)
[2020-09-25] MEDS: Enoxaparin 40 MG/0.4 ML SYR SUBCUT SCH (05:21)
[2020-09-25 08:25] LABS: Hematocrit 32 % (42-52); Hemoglobin 10.9 g/dL (14.0-18.0); Mean Corpuscular HGB Conc 34 g/dL (31-36); Mean Corpuscular Hemoglobin 28 pg (27-31); Mean Corpuscular Volume 83 fL (80-94); Mean Platelet Volume 5.9 fL (7.4-10.4); Platelet Count 604 10^3/uL (150-450); Red Blood Count 3.82 10^6 /uL (4.18-5.48); Red Cell Distribution Width 17 % (10-15); White Blood Count 10.6 10^3/uL (3.5-10.8)
[2020-09-25 08:40] LABS: Calcium 8.8 mg/dL (8.6-10.3); EGFR Non-African American 264.5 (>60); Potassium 4.2 mmol/L (3.5-5.0)
[2020-09-25 08:58] LABS: ABS Basophils 0.1 10^3/ul (0-0.2); ABS Eosinophils 0.4 10^3/ul (0-0.6); ABS Lymphocytes 2.2 10^3/ul (1.0-4.8); ABS Neutrophils 7.1 10^3/ul (1.5-7.7); Eosinophil % 3.4 %; Lymphocyte % 20.4 %
[2020-09-25] MEDS: Collagenase 250 units/gm OINT 1 tube TOPICAL SCH (09:29)
[2020-09-25] MEDS: Fluticasone NASAL SPRAY 50MCG 16 gm SPRAY BTL INTRANASAL SCH ×2 (09:30→21:49)
[2020-09-25] MEDS: Nicotine PATCH 21 MG/24 HR PATCH TRANSDERM SCH (09:31)
[2020-09-25] MEDS: Calcium Polycarbophil 625mg TB PO SCH (10:31)
[2020-09-25] MEDS: Nicotine GUM 4MG FRUIT FLAVOR PO PRN ×2 (18:01→23:07)
[2020-09-25] MEDS: Morphine 2 MG/ML SYRINGE IV PRN (21:48)
[2020-09-26] MEDS: Linezolid 600 MG IVPREMIX(*) 600 MG/300 ML BAG IVPB SCH (03:06)
[2020-09-26] MEDS: Enoxaparin 40 MG/0.4 ML SYR SUBCUT SCH ×2 (06:01→06:28)
[2020-09-26 08:34] VITALS: BP 142/104
[2020-09-26] MEDS: Nicotine PATCH 21 MG/24 HR PATCH TRANSDERM SCH (08:53)
[2020-09-26] MEDS ORDERED: Ondansetron ODT 4 mg TAB 4 MG TAB SL PRN (08:56)
[2020-09-26] MEDS: Morphine 2 MG/ML SYRINGE IV PRN (09:01)
[2020-09-26] MEDS: Nicotine GUM 4MG FRUIT FLAVOR PO PRN (09:02)
[2020-09-26] MEDS: Collagenase 250 units/gm OINT 1 tube TOPICAL SCH (09:31)
[2020-09-26] MEDS: Fluticasone NASAL SPRAY 50MCG 16 gm SPRAY BTL INTRANASAL SCH (09:32)
== END 2020-09-26 10:13 | DRG 872 ==
LOC: ED 22:07 → MEDTELE 09-18 00:26 → ICU 09-19 09:01 → MEDTELE 09-20 09:47
PROVIDERS: ADMIT Internal Medicine; ATTEND Internal Medicine

== ENCOUNTER 2021-08-19 18:20 | Inpatient (IN) ==
[2021-08-19] MEDS ORDERED: Morphine ER 15 mg TAB ** extended release PO ONE (21:47)
[2021-08-19 23:06] LABS: Urine Appearance Clear; Urine Bilirubin Negative (Negative); Urine Blood Negative (Negative); Urine Color Straw; Urine Glucose Negative (Negative); Urine Ketones Negative (Negative); Urine Nitrite Negative (Negative); Urine Protein Negative (Negative); Urine Specific Gravity 1.002 (1.002-1.030); Urine Urobilinogen Negative (Negative)
[2021-08-19 23:07] LABS: ABS Basophils 0.1 10^3/ul (0-0.2); ABS Eosinophils 0.2 10^3/ul (0-0.6); ABS Lymphocytes 2.1 10^3/ul (1.0-4.8); ABS Monocytes 1.1 10^3/ul (0-0.8); ABS Neutrophils 7.7 10^3/ul (1.5-7.7); Eosinophil % 2.1 %; Hematocrit 35 % (42-52); Hemoglobin 11.7 g/dL (14.0-18.0); Lymphocyte % 18.6 %; Mean Corpuscular HGB Conc 33 g/dL (31-36); Mean Corpuscular Hemoglobin 25 pg (27-31); Mean Corpuscular Volume 76 fL (80-94); Mean Platelet Volume 6.1 fL (7.4-10.4); Platelet Count 560 10^3/uL (150-450); Red Blood Count 4.65 10^6 /uL (4.18-5.48); Red Cell Distribution Width 16 % (10-15); White Blood Count 11.1 10^3/uL (3.5-10.8)
[2021-08-19 23:09] LABS: Urine Bacteria 1+ (Absent); Urine Red Blood Cell Trace(0-2/hpf) (Absent); Urine Squamous Epithelial Cell Present (Absent); Urine White Blood Cell Trace(0-5/hpf) (Absent)
[2021-08-19 23:31] LABS: ALT 12 U/L (7-52); AST 15 U/L (13-39); Albumin 3.9 g/dL (3.2-5.2); Albumin/Globulin Ratio 1.1 (1-3); Alkaline Phosphatase 89 U/L (35-149); Anion Gap 11 mmol/L (2-11); Blood Urea Nitrogen 9 mg/dL (6-24); CO2 Carbon Dioxide 26 mmol/L (22-32); Calcium 9.2 mg/dL (8.6-10.3); Chloride 101 mmol/L (101-111); Globulin 3.5 g/dL (2-4); Glucose 87 mg/dL (70-100); Lipase < 10 U/L (11.0-82.0); Potassium 3.7 mmol/L (3.5-5.0); Sodium 138 mmol/L (135-145); Total Protein 7.4 g/dL (6.4-8.9); eGFR CKD-EPI 135.7 (>60)
[2021-08-19] MEDS ORDERED: Iohexol 300 (CONTRAST) 10 ML SDV IV ONE (23:39)
[2021-08-20] MEDS ORDERED: Morphine ER 15 mg TAB ** extended release PO ONE (08:35)
[2021-08-20] MEDS ORDERED: Nicotine GUM 4MG FRUIT FLAVOR PO PRN (10:38)
[2021-08-20] MEDS: Morphine ER 15 mg TAB ** extended release PO SCH (19:39)
[2021-08-20] MEDS: Senna TAB 8.6 mg TAB PO PRN (20:08)
[2021-08-20] MEDS ORDERED: Morphine 2 MG/ML SYRINGE IV ONE (23:55)
[2021-08-21] MEDS: Polyethylene Glycol 3350 17 GM PACKET PO PRN (09:33)
[2021-08-21] MEDS: Morphine ER 15 mg TAB ** extended release PO SCH ×2 (09:34→20:40)
[2021-08-22] MEDS: Polyethylene Glycol 3350 17 GM PACKET PO PRN (05:37)
[2021-08-22] MEDS: Senna TAB 8.6 mg TAB PO PRN (05:37)
[2021-08-22] MEDS: Morphine ER 15 mg TAB ** extended release PO SCH ×2 (10:37→21:10)
[2021-08-23] MEDS: Morphine ER 15 mg TAB ** extended release PO SCH (09:24)
[2021-08-23 11:10] VITALS: BP 105/63
== END 2021-08-23 12:55 | disposition home or self-care (01) | DRG 91 ==
LOC: ED 18:20 → EDHOLD 08-20 13:48 → SUATTDRO 08-20 13:48 → MED 08-20 15:57
PROVIDERS: ADMIT Hospitalist; ATTEND Internal Medicine

== ENCOUNTER 2022-11-27 18:20 | Inpatient (IN) ==
[2022-11-27] MEDS ORDERED: Lactated Ringers 1000 ml BAG 1,000 ML IV ONE ×2 (18:50→23:03)
[2022-11-27] MEDS ORDERED: cefTRIAXone 1 gm/50 mL D5W 1 GM/50 ML BAG IV ONE (18:50)
[2022-11-27] MEDS ORDERED: Vancomycin 1,250 MG in NS 0.9% 250 ml 250 ML IVPB ONE (18:50)
[2022-11-27 19:16] LABS: ABS Eosinophils 0.1 10^3/uL (0.0-0.5); ABS Lymphocytes 1.1 10^3/uL (1.0-4.8); ABS Monocytes 1.4 10^3/uL (0.0-1.1); ABS Neutrophils 12.8 10^3/uL (1.5-7.6); ABS Nucleated RBC 0.01 10^3/ul; Eosinophil % 0.8 %; Hematocrit 31.6 % (38-53); Lymphocyte % 7.2 %; Mean Corpuscular Hemoglobin 23.9 pg (27-33); Mean Corpuscular Hgb Conc 31.7 g/dL (31-36); Mean Corpuscular Volume 75.5 fL (80-97); Mean Platelet Volume 6.2 fL (7.5-11.2); Nucleated Red Blood Cells % 0.1 /100 WBC (0.0-0.4); Platelet Count 782 10^3/uL (150-450); Red Blood Count 4.19 10^6/uL (4.06-5.63); Red Cell Distribution Width 16.7 % (12-17); White Blood Count 15.5 10^3/uL (3.6-10.2)
[2022-11-27] MEDS ORDERED: Ondansetron 4 mg VIAL 2 MG/ML 2 ml VIAL IV ONE (19:21)
[2022-11-27] MEDS ORDERED: Ondansetron 4 mg VIAL 2 MG/ML 2 ml VIAL ONE (19:22)
[2022-11-27 19:32] LABS: Albumin 2.7 g/dL (3.2-5.2); Albumin/Globulin Ratio 0.6 (1-3); C Reactive Protein 215.17 mg/L (<8.01); Calcium 8.4 mg/dL (8.6-10.3); Creatinine, Serum 0.62 mg/dL (0.67-1.17); Globulin 4.2 g/dL (2-4); Potassium 3.5 mmol/L (3.5-5.0); Total Bilirubin 0.3 mg/dL (0.2-1.0); Total Protein 6.9 g/dL (6.4-8.9); eGFR CKD-EPI 128.6 (>60)
[2022-11-27] MEDS ORDERED: Iodixanol (CONTRAST) 320 MG/ML 100 ML SDV IV ONE (20:35)
[2022-11-27 20:53] LABS: Urine Appearance Turbid; Urine Bilirubin 1+ (Negative); Urine Blood 1+ (Negative); Urine Color Amber; Urine Glucose Negative (Negative); Urine Ketones Negative (Negative); Urine Nitrite Negative (Negative); Urine Protein 3+(>=500 mg/dL) (Negative); Urine Specific Gravity 1.028 (1.002-1.030); Urine Urobilinogen Positive (Negative)
[2022-11-27 21:06] LABS: Urine Bacteria 2+ (Absent); Urine Red Blood Cell 2+(6-10/hpf) (Absent); Urine White Blood Cell 3+(>20/hpf) (Absent)
[2022-11-27] MEDS ORDERED: Heparin 5000 UNITS/ML 1 mL VIAL SUBCUT ONE (23:05)
[2022-11-27 23:15] LABS: Magnesium 1.9 mg/dL (1.9-2.7)
[2022-11-27] MEDS ORDERED: Vancomycin per Pharmacy 1 EA NOTE FOLLOW UP SCH (23:45)
[2022-11-28] MEDS: Vancomycin 1,250 MG in NS 0.9% 250 ml 250 ML IVPB SCH ×2 (03:11→10:54)
[2022-11-28 05:41] LABS: ABS Eosinophils 0.3 10^3/uL (0.0-0.5); ABS Lymphocytes 1.9 10^3/uL (1.0-4.8); ABS Monocytes 0.9 10^3/uL (0.0-1.1); ABS Neutrophils 7.7 10^3/uL (1.5-7.6); ABS Nucleated RBC 0.01 10^3/ul; Eosinophil % 2.4 %; Hematocrit 23.7 % (38-53); Hemoglobin 7.9 g/dL (13.2-16.3); Lymphocyte % 17.7 %; Mean Corpuscular Hemoglobin 24.5 pg (27-33); Mean Corpuscular Hgb Conc 33.1 g/dL (31-36); Mean Corpuscular Volume 73.9 fL (80-97); Mean Platelet Volume 6.1 fL (7.5-11.2); Nucleated Red Blood Cells % 0.1 /100 WBC (0.0-0.4); Platelet Count 574 10^3/uL (150-450); Red Blood Count 3.21 10^6/uL (4.06-5.63); Red Cell Distribution Width 16.4 % (12-17); White Blood Count 10.7 10^3/uL (3.6-10.2)
[2022-11-28 06:01] LABS: Calcium 7.5 mg/dL (8.6-10.3); Creatinine, Serum 0.47 mg/dL (0.67-1.17); Magnesium 1.7 mg/dL (1.9-2.7); Potassium 3.3 mmol/L (3.5-5.0); eGFR CKD-EPI 139.8 (>60)
[2022-11-28] MEDS: DULoxetine DR 30 mg CAP PO SCH (07:42)
[2022-11-28] MEDS: NS 0.9% 1000 ml BAG 1,000 ML IV SCH ×2 (10:31→22:19)
[2022-11-28 18:16] LABS: Urine Benzodiazepine Screen None Detected (None Detect); Urine Cannabinoids Screen None Detected (None Detect); Urine Opiates Screen Presumptive Positive (None Detect)
[2022-11-28] MEDS ORDERED: Vancomycin Trough Check NOTE FOLLOW UP ONE (18:30)
[2022-11-28] MEDS: cefTRIAXone 1 gm/50 mL D5W 1 GM/50 ML BAG IV SCH (22:18)
[2022-11-28] MEDS: Collagenase 250 units/gm OINT 1 tube TOPICAL SCH (22:18)
[2022-11-29] MEDS ORDERED: Vancomycin Random Level NOTE FOLLOW UP ONE (06:00)
[2022-11-29 06:33] LABS: Creatinine, Serum 0.36 mg/dL (0.67-1.17); eGFR CKD-EPI 151.6 (>60)
[2022-11-29 06:42] LABS: Vancomycin Random 7.8 mcg/mL
[2022-11-29] MEDS: NS 0.9% 1000 ml BAG 1,000 ML IV SCH (07:31)
[2022-11-29] MEDS: DULoxetine DR 30 mg CAP PO SCH (08:52)
[2022-11-29 11:38] LABS: ABS Eosinophils 0.3 10^3/uL (0.0-0.5); ABS Lymphocytes 2.1 10^3/uL (1.0-4.8); ABS Monocytes 0.9 10^3/uL (0.0-1.1); ABS Neutrophils 6.4 10^3/uL (1.5-7.6); ABS Nucleated RBC 0.01 10^3/ul; Eosinophil % 3.3 %; Hematocrit 22.3 % (38-53); Hemoglobin 7.2 g/dL (13.2-16.3); Lymphocyte % 21.7 %; Mean Corpuscular Hemoglobin 24.2 pg (27-33); Mean Corpuscular Hgb Conc 32.3 g/dL (31-36); Mean Corpuscular Volume 74.8 fL (80-97); Mean Platelet Volume 6.2 fL (7.5-11.2); Nucleated Red Blood Cells % 0.1 /100 WBC (0.0-0.4); Platelet Count 537 10^3/uL (150-450); Red Blood Count 2.98 10^6/uL (4.06-5.63); Red Cell Distribution Width 16.7 % (12-17); White Blood Count 9.8 10^3/uL (3.6-10.2)
[2022-11-29 11:47] LABS: Albumin 2.1 g/dL (3.2-5.2); Albumin/Globulin Ratio 0.8 (1-3); Calcium 7.5 mg/dL (8.6-10.3); Globulin 2.8 g/dL (2-4); Potassium 3.5 mmol/L (3.5-5.0); Total Bilirubin 0.1 mg/dL (0.2-1.0); Total Protein 4.9 g/dL (6.4-8.9)
[2022-11-29 12:07] LABS: Ferritin 396.2 ng/mL (24-336)
[2022-11-29] MEDS: Collagenase 250 units/gm OINT 1 tube TOPICAL SCH (14:25)
[2022-11-29] MEDS: Vancomycin 1000 MG in NS 0.9% 250 ML IVPB SCH ×2 (14:57→22:18)
[2022-11-29] MEDS: cefTRIAXone 1 gm/50 mL D5W 1 GM/50 ML BAG IV SCH (20:31)
[2022-11-30] MEDS: Vancomycin 1000 MG in NS 0.9% 250 ML IVPB SCH ×2 (05:59→15:12)
[2022-11-30 07:05] LABS: ABS Eosinophils 0.3 10^3/uL (0.0-0.5); ABS Lymphocytes 2.3 10^3/uL (1.0-4.8); ABS Monocytes 0.8 10^3/uL (0.0-1.1); ABS Neutrophils 4.9 10^3/uL (1.5-7.6); Hematocrit 23.9 % (38-53); Hemoglobin 7.9 g/dL (13.2-16.3); Lymphocyte % 27.6 %; Mean Corpuscular Hemoglobin 25.1 pg (27-33); Mean Corpuscular Hgb Conc 32.9 g/dL (31-36); Mean Corpuscular Volume 76.1 fL (80-97); Mean Platelet Volume 6.1 fL (7.5-11.2); Platelet Count 575 10^3/uL (150-450); Red Blood Count 3.14 10^6/uL (4.06-5.63); Red Cell Distribution Width 16.5 % (12-17); White Blood Count 8.3 10^3/uL (3.6-10.2)
[2022-11-30] MEDS: DULoxetine DR 30 mg CAP PO SCH (09:09)
[2022-11-30] MEDS ORDERED: Vancomycin Trough Check NOTE FOLLOW UP ONE (13:30)
[2022-11-30 13:46] LABS: Creatinine, Serum 0.3 mg/dL (0.67-1.17); eGFR CKD-EPI 160.2 (>60)
[2022-11-30 14:06] LABS: Vancomycin Trough 12.6 mcg/mL
[2022-11-30] MEDS: Collagenase 250 units/gm OINT 1 tube TOPICAL SCH (15:55)
[2022-11-30] MEDS: Vancomycin 1,250 MG in NS 0.9% 250 ml 250 ML IVPB SCH (16:05)
[2022-11-30] MEDS: cefTRIAXone 1 gm/50 mL D5W 1 GM/50 ML BAG IV SCH (19:52)
[2022-11-30] MEDS: Enoxaparin 40 MG/0.4 ML SYR SUBCUT SCH (21:13)
[2022-12-01] MEDS: Vancomycin 1,250 MG in NS 0.9% 250 ml 250 ML IVPB SCH ×3 (00:32→17:58)
[2022-12-01 05:57] LABS: ABS Basophils 0.1 10^3/uL (0.0-0.1); ABS Eosinophils 0.3 10^3/uL (0.0-0.5); ABS Lymphocytes 1.8 10^3/uL (1.0-4.8); ABS Monocytes 0.9 10^3/uL (0.0-1.1); ABS Neutrophils 5.3 10^3/uL (1.5-7.6); ABS Nucleated RBC 0.03 10^3/ul; Eosinophil % 3.1 %; Hematocrit 24.2 % (38-53); Hemoglobin 7.8 g/dL (13.2-16.3); Lymphocyte % 21.8 %; Mean Corpuscular Hemoglobin 24.3 pg (27-33); Mean Corpuscular Hgb Conc 32.2 g/dL (31-36); Mean Corpuscular Volume 75.5 fL (80-97); Mean Platelet Volume 5.8 fL (7.5-11.2); Nucleated Red Blood Cells % 0.4 /100 WBC (0.0-0.4); Platelet Count 683 10^3/uL (150-450); Red Cell Distribution Width 17.1 % (12-17); White Blood Count 8.3 10^3/uL (3.6-10.2)
[2022-12-01 06:24] LABS: Calcium 7.6 mg/dL (8.6-10.3); Magnesium 1.8 mg/dL (1.9-2.7); Potassium 3.9 mmol/L (3.5-5.0)
[2022-12-01 06:29] LABS: Creatinine, Serum 0.26 mg/dL (0.67-1.17); eGFR CKD-EPI 167.2 (>60)
[2022-12-01] MEDS ORDERED: Potassium Chlor 10 meq TAB PO ONE (07:40)
[2022-12-01] MEDS ORDERED: Magnesium Sulfate 2 gm BAG 2 GM/50 ML BAG IVPB ONE (07:40)
[2022-12-01] MEDS: DULoxetine DR 30 mg CAP PO SCH (08:21)
[2022-12-01] MEDS: Collagenase 250 units/gm OINT 1 tube TOPICAL SCH (10:12)
[2022-12-01 11:42] LABS: % Iron Saturation 19 % (15-55); .Transferrin < 75 mg/dL (203-362); Iron < 20 ug/dL (50-212); Total Iron Binding Capacity 105 mcg/dL (250-450); Unsaturated Iron Binding 85 ug/dL
[2022-12-01] MEDS ORDERED: Vancomycin Trough Check NOTE FOLLOW UP ONE (13:30)
[2022-12-01] MEDS: Enoxaparin 40 MG/0.4 ML SYR SUBCUT SCH (21:43)
[2022-12-02] MEDS ORDERED: Vancomycin 1,250 MG in NS 0.9% 250 ml 250 ML IVPB SCH (07:30)
[2022-12-02] MEDS: Vancomycin 1,250 MG in NS 0.9% 250 ml 250 ML IVPB SCH (07:47)
[2022-12-02 08:51] LABS: ABS Eosinophils 0.2 10^3/uL (0.0-0.5); ABS Lymphocytes 1.5 10^3/uL (1.0-4.8); ABS Monocytes 0.9 10^3/uL (0.0-1.1); ABS Neutrophils 6.6 10^3/uL (1.5-7.6); ABS Nucleated RBC 0.03 10^3/ul; Eosinophil % 2.2 %; Hematocrit 26.6 % (38-53); Hemoglobin 8.6 g/dL (13.2-16.3); Lymphocyte % 15.9 %; Mean Corpuscular Hgb Conc 32.4 g/dL (31-36); Mean Corpuscular Volume 77.2 fL (80-97); Mean Platelet Volume 5.8 fL (7.5-11.2); Nucleated Red Blood Cells % 0.3 /100 WBC (0.0-0.4); Platelet Count 615 10^3/uL (150-450); Red Blood Count 3.45 10^6/uL (4.06-5.63); Red Cell Distribution Width 16.7 % (12-17); White Blood Count 9.2 10^3/uL (3.6-10.2)
[2022-12-02 08:54] LABS: Anion Gap 5 mmol/L (2-16); Blood Urea Nitrogen 7 mg/dL (6-24); CO2 Carbon Dioxide 29 mmol/L (22-32); Calcium 7.6 mg/dL (8.6-10.3); Chloride 100 mmol/L (101-111); Glucose 88 mg/dL (70-100); Magnesium 2.1 mg/dL (1.9-2.7); Potassium 4.9 mmol/L (3.5-5.0); Sodium 134 mmol/L (135-145)
[2022-12-02] MEDS: Collagenase 250 units/gm OINT 1 tube TOPICAL SCH (08:54)
[2022-12-02] MEDS: DULoxetine DR 30 mg CAP PO SCH (08:55)
[2022-12-02 08:57] LABS: Creatinine, Serum < 0.30 mg/dL (0.67-1.17); eGFR CKD-EPI 160.2 (>60)
[2022-12-02] MEDS ORDERED: Lidocaine 1% MPF 5 ML VIAL INJ ONE (10:44)
[2022-12-02] MEDS: cefTRIAXone 1 gm/50 mL D5W 1 GM/50 ML BAG IV SCH (17:42)
[2022-12-02] MEDS: Enoxaparin 40 MG/0.4 ML SYR SUBCUT SCH (22:15)
[2022-12-03] MEDS ORDERED: Vancomycin Trough Check NOTE FOLLOW UP ONE (07:00)
[2022-12-03 09:45] LABS: Hematocrit 25.8 % (38-53); Hemoglobin 8.2 g/dL (13.2-16.3); Mean Corpuscular Hemoglobin 24.2 pg (27-33); Mean Corpuscular Hgb Conc 31.6 g/dL (31-36); Mean Corpuscular Volume 76.7 fL (80-97); Mean Platelet Volume 5.5 fL (7.5-11.2); Platelet Count 624 10^3/uL (150-450); Red Blood Count 3.37 10^6/uL (4.06-5.63); Red Cell Distribution Width 17.4 % (12-17); White Blood Count 7.4 10^3/uL (3.6-10.2)
[2022-12-03 10:01] LABS: ABS Eosinophils 0.2 10^3/uL (0.0-0.5); ABS Lymphocytes 1.7 10^3/uL (1.0-4.8); ABS Monocytes 0.6 10^3/uL (0.0-1.1); ABS Neutrophils 4.8 10^3/uL (1.5-7.6); ABS Nucleated RBC 0.03 10^3/ul; Eosinophil % 2.4 %; Lymphocyte % 22.7 %; Nucleated Red Blood Cells % 0.3 /100 WBC (0.0-0.4)
[2022-12-03] MEDS: DULoxetine DR 30 mg CAP PO SCH (10:07)
[2022-12-03 10:08] LABS: Anion Gap 8 mmol/L (2-16); CO2 Carbon Dioxide 25 mmol/L (22-32); Calcium 7.6 mg/dL (8.6-10.3); Chloride 101 mmol/L (101-111); Magnesium 2.1 mg/dL (1.9-2.7); Potassium 4.7 mmol/L (3.5-5.0); Sodium 134 mmol/L (135-145)
[2022-12-03 10:13] LABS: Blood Urea Nitrogen 7 mg/dL (6-24); Glucose 88 mg/dL (70-100)
[2022-12-03 10:16] LABS: Creatinine, Serum < 0.30 mg/dL (0.67-1.17); eGFR CKD-EPI 160.2 (>60)
[2022-12-03] MEDS: Collagenase 250 units/gm OINT 1 tube TOPICAL SCH (10:18)
[2022-12-03] MEDS: cefTRIAXone 1 gm/50 mL D5W 1 GM/50 ML BAG IV SCH (16:03)
[2022-12-03] MEDS: Enoxaparin 40 MG/0.4 ML SYR SUBCUT SCH (20:43)
[2022-12-04 06:08] LABS: Hematocrit 23.9 % (38-53); Hemoglobin 7.9 g/dL (13.2-16.3); Mean Corpuscular Hemoglobin 25.4 pg (27-33); Mean Corpuscular Hgb Conc 33.1 g/dL (31-36); Mean Corpuscular Volume 76.6 fL (80-97); Mean Platelet Volume 5.4 fL (7.5-11.2); Platelet Count 638 10^3/uL (150-450); Red Blood Count 3.12 10^6/uL (4.06-5.63); Red Cell Distribution Width 17.4 % (12-17); White Blood Count 8.4 10^3/uL (3.6-10.2)
[2022-12-04 06:24] LABS: Calcium 7.9 mg/dL (8.6-10.3); Creatinine, Serum 0.31 mg/dL (0.67-1.17); Magnesium 1.9 mg/dL (1.9-2.7); Potassium 4.2 mmol/L (3.5-5.0); eGFR CKD-EPI 158.6 (>60)
[2022-12-04 07:01] LABS: ABS Basophils 0.1 10^3/uL (0.0-0.1); ABS Eosinophils 0.2 10^3/uL (0.0-0.5); ABS Lymphocytes 1.9 10^3/uL (1.0-4.8); ABS Monocytes 0.7 10^3/uL (0.0-1.1); ABS Neutrophils 5.5 10^3/uL (1.5-7.6); ABS Nucleated RBC 0.01 10^3/ul; Eosinophil % 2.6 %; Lymphocyte % 22.1 %; Nucleated Red Blood Cells % 0.1 /100 WBC (0.0-0.4)
[2022-12-04] MEDS ORDERED: Magnesium Sulfate IV 1GM/100ML 1 GM/100 ML BAG IV ONE (07:23)
[2022-12-04] MEDS: DULoxetine DR 30 mg CAP PO SCH (07:49)
[2022-12-04] MEDS: Collagenase 250 units/gm OINT 1 tube TOPICAL SCH (09:26)
[2022-12-04] MEDS ORDERED: Midazolam 5 mg/5 ml VIAL 1 mg/ml 5 ml VIAL (5 mg) ONE (15:33)
[2022-12-04] MEDS ORDERED: Ketamine HCL 50 mg/ml 10 ml VIAL (500 MG) ONE (15:33)
[2022-12-04] MEDS: cefTRIAXone 1 gm/50 mL D5W 1 GM/50 ML BAG IV SCH (16:23)
[2022-12-04] MEDS: Enoxaparin 40 MG/0.4 ML SYR SUBCUT SCH (20:44)
[2022-12-05] MEDS: DULoxetine DR 30 mg CAP PO SCH (10:20)
[2022-12-05] MEDS: Ondansetron 4 mg VIAL 2 MG/ML 2 ml VIAL IV PRN (14:43)
[2022-12-05] MEDS: Collagenase 250 units/gm OINT 1 tube TOPICAL SCH (15:37)
[2022-12-05] MEDS: cefTRIAXone 1 gm/50 mL D5W 1 GM/50 ML BAG IV SCH (16:32)
[2022-12-05] MEDS: Enoxaparin 40 MG/0.4 ML SYR SUBCUT SCH (21:29)
[2022-12-06 06:10] LABS: Hematocrit 24.1 % (38-53); Hemoglobin 7.9 g/dL (13.2-16.3); Mean Corpuscular Hemoglobin 25.3 pg (27-33); Mean Corpuscular Hgb Conc 32.8 g/dL (31-36); Mean Corpuscular Volume 77.1 fL (80-97); Mean Platelet Volume 5.4 fL (7.5-11.2); Platelet Count 661 10^3/uL (150-450); Red Blood Count 3.13 10^6/uL (4.06-5.63); Red Cell Distribution Width 18.2 % (12-17); White Blood Count 8.5 10^3/uL (3.6-10.2)
[2022-12-06 06:24] LABS: Calcium 8.2 mg/dL (8.6-10.3); Creatinine, Serum 0.32 mg/dL (0.67-1.17); Magnesium 1.8 mg/dL (1.9-2.7); eGFR CKD-EPI 157.1 (>60)
[2022-12-06 06:28] LABS: ABS Eosinophils 0.2 10^3/uL (0.0-0.5); ABS Lymphocytes 2.3 10^3/uL (1.0-4.8); ABS Monocytes 0.6 10^3/uL (0.0-1.1); ABS Neutrophils 5.3 10^3/uL (1.5-7.6); ABS Nucleated RBC 0.01 10^3/ul; Eosinophil % 2.1 %; Lymphocyte % 27.5 %; Nucleated Red Blood Cells % 0.1 /100 WBC (0.0-0.4)
[2022-12-06] MEDS ORDERED: Magnesium Sulfate 2 gm BAG 2 GM/50 ML BAG IVPB ONE (08:30)
[2022-12-06] MEDS: DULoxetine DR 30 mg CAP PO SCH (09:15)
[2022-12-06] MEDS: Collagenase 250 units/gm OINT 1 tube TOPICAL SCH (12:33)
[2022-12-06] MEDS: cefTRIAXone 1 gm/50 mL D5W 1 GM/50 ML BAG IV SCH (16:24)
[2022-12-06] MEDS: Enoxaparin 40 MG/0.4 ML SYR SUBCUT SCH (22:18)
[2022-12-07] MEDS: DULoxetine DR 30 mg CAP PO SCH (09:23)
[2022-12-07] MEDS: Collagenase 250 units/gm OINT 1 tube TOPICAL SCH (09:27)
[2022-12-07] MEDS ORDERED: Midazolam 5 mg/5 ml VIAL 1 mg/ml 5 ml VIAL (5 mg) ONE (13:23)
[2022-12-07] MEDS ORDERED: Ketamine HCL 50 mg/ml 10 ml VIAL (500 MG) ONE (13:23)
[2022-12-07] MEDS ORDERED: Rocuronium 50 mg VIAL 10 mg/ml 5 ml VIAL (50 mg) ONE (13:53)
[2022-12-07] MEDS ORDERED: Naloxone 0.4 mg VIAL 0.4 mg/ml 1 ml VIAL IV PRN (14:22)
[2022-12-07] MEDS ORDERED: Ondansetron 4 mg VIAL 2 MG/ML 2 ml VIAL IV PRN (14:22)
[2022-12-07] MEDS ORDERED: fentaNYL 100 mcg/2 ml 50 MCG/ML VIAL IV PRN (14:22)
[2022-12-07] MEDS: cefTRIAXone 1 GM Q24H (ADVAN) IVPB SCH (15:59)
[2022-12-07] MEDS: Nicotine PATCH 7 MG/24 HR PATCH TRANSDERM SCH (17:59)
[2022-12-07] MEDS: Enoxaparin 40 MG/0.4 ML SYR SUBCUT SCH (22:24)
[2022-12-08] MEDS ORDERED: Morphine 2 MG/ML SYRINGE IV ONE (04:34)
[2022-12-08] MEDS: DULoxetine DR 30 mg CAP PO SCH (07:55)
[2022-12-08] MEDS: Nicotine PATCH 7 MG/24 HR PATCH TRANSDERM SCH (08:02)
[2022-12-08] MEDS: Collagenase 250 units/gm OINT 1 tube TOPICAL SCH (08:08)
[2022-12-08] MEDS: cefTRIAXone 1 GM Q24H (ADVAN) IVPB SCH (18:05)
[2022-12-08] MEDS: Enoxaparin 40 MG/0.4 ML SYR SUBCUT SCH (20:06)
[2022-12-09] MEDS: Ondansetron 4 mg VIAL 2 MG/ML 2 ml VIAL IV PRN (00:23)
[2022-12-09] MEDS: Nicotine PATCH 7 MG/24 HR PATCH TRANSDERM SCH (09:02)
[2022-12-09] MEDS: DULoxetine DR 30 mg CAP PO SCH ×2 (09:07→09:14)
[2022-12-09] MEDS: Mineral Oil ENEMA 118 ML/BOTTLE BOTTLE PR SCH (14:11)
[2022-12-09] MEDS: Collagenase 250 units/gm OINT 1 tube TOPICAL SCH (16:22)
[2022-12-09] MEDS: cefTRIAXone 1 GM Q24H (ADVAN) IVPB SCH (18:11)
[2022-12-09] MEDS: Enoxaparin 40 MG/0.4 ML SYR SUBCUT SCH (21:44)
[2022-12-10 07:04] LABS: Calcium 8.5 mg/dL (8.6-10.3); Creatinine, Serum 0.32 mg/dL (0.67-1.17); Magnesium 1.8 mg/dL (1.9-2.7); eGFR CKD-EPI 157.1 (>60)
[2022-12-10] MEDS ORDERED: Magnesium Sulfate 2 gm BAG 2 GM/50 ML BAG IVPB ONE (07:10)
[2022-12-10] MEDS: DULoxetine DR 30 mg CAP PO SCH (09:10)
[2022-12-10] MEDS: Nicotine PATCH 7 MG/24 HR PATCH TRANSDERM SCH (09:10)
[2022-12-10] MEDS ORDERED: cefTRIAXone 1 gm/50 mL D5W 1 GM/50 ML BAG IV ONE (12:41)
[2022-12-10] MEDS: Collagenase 250 units/gm OINT 1 tube TOPICAL SCH (16:10)
[2022-12-10] MEDS: Mineral Oil ENEMA 118 ML/BOTTLE BOTTLE PR SCH ×2 (18:03→18:08)
[2022-12-10] MEDS: Enoxaparin 40 MG/0.4 ML SYR SUBCUT SCH (21:37)
[2022-12-11] MEDS: Nicotine PATCH 7 MG/24 HR PATCH TRANSDERM SCH (10:22)
[2022-12-11] MEDS: DULoxetine DR 30 mg CAP PO SCH ×2 (10:23→10:27)
[2022-12-11] MEDS: Mineral Oil ENEMA 118 ML/BOTTLE BOTTLE PR SCH (14:22)
[2022-12-11] MEDS ORDERED: Magnesium Sulfate 2 gm BAG 2 GM/50 ML BAG IVPB ONE (17:38)
[2022-12-11] MEDS: Enoxaparin 40 MG/0.4 ML SYR SUBCUT SCH (20:30)
[2022-12-11] MEDS: Collagenase 250 units/gm OINT 1 tube TOPICAL SCH (20:30)
[2022-12-12 07:03] LABS: Calcium 8.8 mg/dL (8.6-10.3); Creatinine, Serum 0.45 mg/dL (0.67-1.17); Magnesium 2.2 mg/dL (1.9-2.7); Potassium 4.8 mmol/L (3.5-5.0); eGFR CKD-EPI 141.7 (>60)
[2022-12-12] MEDS: Nicotine PATCH 7 MG/24 HR PATCH TRANSDERM SCH (09:40)
[2022-12-12] MEDS: DULoxetine DR 30 mg CAP PO SCH (09:41)
[2022-12-12] MEDS: Collagenase 250 units/gm OINT 1 tube TOPICAL SCH (11:42)
[2022-12-12] MEDS: Mineral Oil ENEMA 118 ML/BOTTLE BOTTLE PR SCH (11:42)
[2022-12-12] MEDS: Enoxaparin 40 MG/0.4 ML SYR SUBCUT SCH (21:12)
[2022-12-13] MEDS: Nicotine PATCH 7 MG/24 HR PATCH TRANSDERM SCH (10:11)
[2022-12-13] MEDS: DULoxetine DR 30 mg CAP PO SCH (10:12)
[2022-12-13] MEDS: Mineral Oil ENEMA 118 ML/BOTTLE BOTTLE PR SCH (10:48)
[2022-12-13] MEDS: Collagenase 250 units/gm OINT 1 tube TOPICAL SCH (15:42)
[2022-12-13] MEDS: Enoxaparin 40 MG/0.4 ML SYR SUBCUT SCH (22:08)
[2022-12-14 06:53] LABS: ABS Basophils 0.1 10^3/uL (0.0-0.1); ABS Eosinophils 0.1 10^3/uL (0.0-0.5); ABS Lymphocytes 1.6 10^3/uL (1.0-4.8); ABS Monocytes 1.1 10^3/uL (0.0-1.1); ABS Neutrophils 5.6 10^3/uL (1.5-7.6); ABS Nucleated RBC 0.01 10^3/ul; Eosinophil % 1.4 %; Hematocrit 25.8 % (38-53); Hemoglobin 8.6 g/dL (13.2-16.3); Lymphocyte % 19.3 %; Mean Corpuscular Hemoglobin 25.8 pg (27-33); Mean Corpuscular Hgb Conc 33.1 g/dL (31-36); Mean Corpuscular Volume 77.7 fL (80-97); Mean Platelet Volume 5.5 fL (7.5-11.2); Nucleated Red Blood Cells % 0.1 /100 WBC (0.0-0.4); Platelet Count 712 10^3/uL (150-450); Red Blood Count 3.32 10^6/uL (4.06-5.63); Red Cell Distribution Width 21.4 % (12-17); White Blood Count 8.4 10^3/uL (3.6-10.2)
[2022-12-14 07:04] LABS: Creatinine, Serum 0.34 mg/dL (0.67-1.17); Magnesium 1.9 mg/dL (1.9-2.7); Potassium 4.2 mmol/L (3.5-5.0); eGFR CKD-EPI 154.2 (>60)
[2022-12-14] MEDS: DULoxetine DR 30 mg CAP PO SCH (10:12)
[2022-12-14] MEDS: Aspirin EC 81 mg TAB.EC (enteric coated) PO SCH (10:14)
[2022-12-14] MEDS: Nicotine PATCH 7 MG/24 HR PATCH TRANSDERM SCH (10:17)
[2022-12-14] MEDS: Mineral Oil ENEMA 118 ML/BOTTLE BOTTLE PR SCH (11:55)
[2022-12-14] MEDS: Collagenase 250 units/gm OINT 1 tube TOPICAL SCH (12:00)
[2022-12-14] MEDS ORDERED: BENZOCAINE/MENTHOL (ORAJEL)20% 1 APPLIC TOP.GEL TOPICAL PRN (18:07)
[2022-12-14] MEDS: Morphine ER 15 mg TAB ** extended release PO SCH (22:05)
[2022-12-14] MEDS: Enoxaparin 40 MG/0.4 ML SYR SUBCUT SCH (22:07)
[2022-12-15] MEDS ORDERED: Ondansetron ODT 4 mg TAB 4 MG TAB SL PRN (03:39)
[2022-12-15] MEDS: Collagenase 250 units/gm OINT 1 tube TOPICAL SCH (09:00)
[2022-12-15] MEDS: DULoxetine DR 30 mg CAP PO SCH (09:42)
[2022-12-15] MEDS: Aspirin EC 81 mg TAB.EC (enteric coated) PO SCH (09:42)
[2022-12-15] MEDS: Morphine ER 15 mg TAB ** extended release PO SCH (09:43)
[2022-12-15] MEDS: Nicotine PATCH 7 MG/24 HR PATCH TRANSDERM SCH (09:47)
[2022-12-15] MEDS: Mineral Oil ENEMA 118 ML/BOTTLE BOTTLE PR SCH (13:39)
[2022-12-15] MEDS: Morphine ER 30 mg TAB ** extended release PO SCH (21:36)
[2022-12-15] MEDS: Enoxaparin 40 MG/0.4 ML SYR SUBCUT SCH (21:42)
[2022-12-16] MEDS: Mineral Oil ENEMA 118 ML/BOTTLE BOTTLE PR SCH (10:47)
[2022-12-16] MEDS: DULoxetine DR 30 mg CAP PO SCH (10:47)
[2022-12-16] MEDS: Morphine ER 30 mg TAB ** extended release PO SCH ×2 (10:47→20:57)
[2022-12-16] MEDS: Aspirin EC 81 mg TAB.EC (enteric coated) PO SCH (10:48)
[2022-12-16] MEDS: Nicotine PATCH 7 MG/24 HR PATCH TRANSDERM SCH (10:48)
[2022-12-16] MEDS: Collagenase 250 units/gm OINT 1 tube TOPICAL SCH (14:01)
[2022-12-16] MEDS: Enoxaparin 40 MG/0.4 ML SYR SUBCUT SCH (20:59)
[2022-12-17] MEDS: Morphine ER 30 mg TAB ** extended release PO SCH ×2 (09:33→21:00)
[2022-12-17] MEDS: DULoxetine DR 30 mg CAP PO SCH (09:34)
[2022-12-17] MEDS: Aspirin EC 81 mg TAB.EC (enteric coated) PO SCH (09:34)
[2022-12-17] MEDS: Nicotine PATCH 7 MG/24 HR PATCH TRANSDERM SCH (09:37)
[2022-12-17 12:19] VITALS: BP 125/70
[2022-12-17] MEDS: Mineral Oil ENEMA 118 ML/BOTTLE BOTTLE PR SCH (18:11)
[2022-12-17] MEDS: Enoxaparin 40 MG/0.4 ML SYR SUBCUT SCH (21:01)
[2022-12-18] MEDS: Mineral Oil ENEMA 118 ML/BOTTLE BOTTLE PR SCH (09:25)
[2022-12-18] MEDS: Aspirin EC 81 mg TAB.EC (enteric coated) PO SCH (09:28)
[2022-12-18] MEDS: Nicotine PATCH 7 MG/24 HR PATCH TRANSDERM SCH (09:28)
[2022-12-18] MEDS: Morphine ER 30 mg TAB ** extended release PO SCH (09:28)
[2022-12-18] MEDS: DULoxetine DR 30 mg CAP PO SCH (09:29)
[2022-12-18] MEDS: Collagenase 250 units/gm OINT 1 tube TOPICAL SCH ×2 (09:30→11:43)
== END 2022-12-18 13:04 | DRG 853 ==
LOC: ED 18:20 → SUATTDRO 23:13 → EDHOLD 23:13 → MEDTELE 11-28 00:31
PROVIDERS: ADMIT Student in an Organized Health Care Education/Training Program; ATTEND Internal Medicine
PROC: O.CATEE (2022-12-07 14:00)